=== PATIENT | male | born 1950 | race African-American/Black ===

== ENCOUNTER 2023-05-11 22:27 | Emergency (ER) | payer MEDICARE, MEDICAID ==
[~2023-05-11] VITALS: Ht 172.7 cm; Wt 74.0 kg
[2023-05-11 22:32] VITALS: BP 150/90; PULSE 99; RESP 16; TEMP 98.4; O2SAT 98
[2023-05-11 23:31] LABS: CLARITY URINE TURBID (CLEAR); COLOR URINE YELLOW (YELLOW); KETONES URINE NEGATIVE (NEGATIVE); LEUKOCYTE ESTERASE URINE 3+ (NEGATIVE); NITRITE URINE NEGATIVE (NEGATIVE); OCCULT BLOOD URINE 2+ (NEGATIVE); PROTEIN URINE 1+ (NEGATIVE); SPECIFIC GRAVITY URINE 1.014 (1.005-1.030); UROBILINOGEN URINE 0.2 E.U./dL (0.2-1.0)
[2023-05-12] MEDS ORDERED: CEFP200T13 MT (00:28)
[2023-05-12] MEDS ORDERED: CEFTRIAXONE SODIUM 1 G/VIAL IM ONE (00:30)
== END 2023-05-12 01:11 | disposition home or self-care (01) ==
LOC: ER 23:27
DX: Z46.6 Encounter for fitting and adjustment of urinary device (principal); N39.0 Urinary tract infection, site not specified; E11.9 Type 2 diabetes mellitus without complications; I10 Essential (primary) hypertension
CPT/HCPCS: 81003; 87086; 51702; 99284; 96372; J0696; Z7610 ×2

== ENCOUNTER 2023-07-27 10:44 | Emergency (ER) | payer MEDICARE, MEDICAID ==
[~2023-07-27] VITALS: Ht 175.3 cm; Wt 68.0 kg
[~2023-07-27 10:44] MED LIST: CEFP200T13 MT; LEVO-65 MT
[2023-07-27 11:01] VITALS: O2SAT 99
[2023-07-27 13:53] LABS: CLARITY URINE CLOUDY (CLEAR); COLOR URINE YELLOW (YELLOW); GLUCOSE URINE NEGATIVE (NEGATIVE); KETONES URINE NEGATIVE (NEGATIVE); LEUKOCYTE ESTERASE URINE 3+ (NEGATIVE); NITRITE URINE NEGATIVE (NEGATIVE); OCCULT BLOOD URINE 2+ (NEGATIVE); PH URINE 6.5 (4.5-8.0); PROTEIN URINE TRACE (NEGATIVE); SPECIFIC GRAVITY URINE 1.016 (1.005-1.030); UROBILINOGEN URINE 0.2 E.U./dL (0.2-1.0)
[2023-07-27 14:19] LABS: SQUAMOUS EPITHELIAL CELL URINE NONE SEEN /lpf (RARE/1+)
[2023-07-27 14:20] LABS: BACTERIA URINE 2+; WBC URINE TNTC /hpf (0-2)
[2023-07-27 14:21] LABS: RBC URINE 0-2 /hpf (0-2)
[2023-07-27 16:00] VITALS: BP 125/64; PULSE 71; RESP 18; TEMP 98.2
== END 2023-07-27 16:01 | disposition home or self-care (01) ==
LOC: ER 10:44
DX: T83.038A Leakage of other urinary catheter, initial encounter (principal); N32.89 Other specified disorders of bladder; E11.9 Type 2 diabetes mellitus without complications; I10 Essential (primary) hypertension; T83.091A Other mechanical complication of indwelling urethral catheter, initial encounter; X58.XXXA Exposure to other specified factors, initial encounter; Z85.9 Personal history of malignant neoplasm, unspecified
CPT/HCPCS: 51702; 81003; 87077; 87186; 99284; A4315

== ENCOUNTER 2023-08-11 07:23 | Emergency (ER) | payer MEDICARE, MEDICAID ==
[~2023-08-11] VITALS: Ht 171.4 cm; Wt 77.0 kg
[2023-08-11 07:45] VITALS: O2SAT 100
[2023-08-11 11:44] VITALS: BP 140/52; PULSE 110; RESP 17; TEMP 99
== END 2023-08-11 11:46 | disposition home or self-care (01) ==
LOC: ER 07:23
DX: T83.098A Other mechanical complication of other urinary catheter, initial encounter (principal); E11.9 Type 2 diabetes mellitus without complications; I10 Essential (primary) hypertension; Z85.9 Personal history of malignant neoplasm, unspecified; X58.XXXA Exposure to other specified factors, initial encounter
CPT/HCPCS: 51702; 99284; A4315